=== PATIENT | male | born 1965 | race African-American/Black ===

== ENCOUNTER 2023-06-20 10:10 | Outpatient (REF) | payer MEDICAID, SELFPAY ==
[2023-06-20 11:43] LABS: Alanine Aminotransferase 33 U/L (0-40); Albumin Level 4.5 g/dL (3.5-5.0); Alkaline Phosphatase 83 U/L (39-117); Anion Gap 14 (12-20); Aspartate Amino Transferase 21 U/L (5-37); Bilirubin Total 0.6 mg/dL (0.0-1.0); Blood Urea Nitrogen 15 mg/dL (9-16); Calcium 9.1 mg/dL (8.4-10.2); Carbon Dioxide 27 mmol/L (22-29); Chloride 103 mmol/L (96-108); Cholesterol 234 mg/dL (<200); Estimated Glomerular Filt Rate > 60; Glucose Random 282 mg/dL (60-115); HDL Cholesterol 51 mg/dL (>40); LDL Cholesterol Calculated 156 mg/dL (<100); Sodium 140 mmol/L (135-145); Total Protein 7.4 g/dL (6.5-8.0); Triglycerides 136 mg/dL (<150)
[2023-06-20 11:59] LABS: TSH reflex Free T4 0.97 uIU/mL (0.32-4.0); Vitamin D 25-OH Total 9.1 ng/mL (>30)
[2023-06-20 12:06] LABS: Reflex LDLD? No
[2023-06-20 12:10] LABS: Creatinine Urine 196.64 mg/dL
== END 2023-06-20 10:11 | disposition home or self-care (01) ==
LOC: HO.LAB 10:10
PROVIDERS: Visit Provider Internal Medicine
DX: I10 Essential (primary) hypertension (principal); E11.9 Type 2 diabetes mellitus without complications
CPT/HCPCS: 36415; 80053; 80061; 82043; 82306; 82570; 84443

== ENCOUNTER 2023-11-21 14:40 | Outpatient (REF) | payer MEDICAID, SELFPAY ==
--- NOTE | ~2023-11-21 | XR_ITS ---
EXAMINATION: XR CHEST CLINICAL INFORMATION: Evaluate for widened mediastinum elevated blood pressure COMPARISON: None available. TECHNIQUE: 2 views of the chest were obtained. FINDINGS: No focal consolidation. No pneumothorax. Trachea is midline. Cardiac mediastinal silhouette is not enlarged. No large pleural effusion. Osseous structures are intact. Soft tissues are unremarkable. XR/XR chest 2V IMPRESSION: No acute cardiopulmonary process.
== END 2023-11-21 14:41 | disposition home or self-care (01) ==
LOC: HO.HHCX 14:40
PROVIDERS: Visit Provider Student in an Organized Health Care Education/Training Program
DX: R07.9 Chest pain, unspecified (principal); E11.9 Type 2 diabetes mellitus without complications
CPT/HCPCS: 71046

== ENCOUNTER 2024-01-30 08:25 | Day surgery (SDC) | payer MEDICAID, SELFPAY ==
[2023-10-08 13:19] VITALS: BMI 29.3
--- NOTE | 2024-01-30 09:10 | HO.ANESPROP2 ---
Documented by User: Benita Mesa NP 01/29/24 12:04 HPI - Anesthesia Eval Consult details Narrative: 58yo M for Colonoscopy Anesthesia Pre-Procedure Meds Is the patient on any of the following meds?: GLP1/DPP4 PMFSH Past Medical History Medical History (Updated 10/08/23 @ 13:20 by Mendy Mcgarry, BRIAN) Elevated cholesterol Diabetes HTN (hypertension) Surgical History Surgical History (Updated 10/08/23 @ 13:20 by Mendy Mcgarry, BRIAN) H/O colonoscopy Social History Social History (Updated 10/08/23 @ 13:20 by Mendy Mcgarry, BRIAN) Household Members: Family Use of substances other than those prescribed or required for medical reasons: No Advance Directives: No Advance Directives Information Provided: Yes Meds Allergies Allergy/AdvReac Type Severity Reaction Status Date / Time No Known Allergies Allergy Verified 10/08/23 13:19 Home Medications ?Medication ?Instructions ?Recorded ?Confirmed ?Last Taken ?Type ergocalciferol (vitamin D2) 1,250 1,250 mcg PO QWEEK 10/08/23 10/08/23 Unknown History mcg (50,000 unit) capsule fluticasone propionate 50 1 spray intranasal DAILY 10/08/23 10/08/23 Unknown History mcg/actuation nasal spray,suspension glimepiride 2 mg tablet 2 mg PO QAM 10/08/23 10/08/23 Unknown History metformin 1,000 mg tablet 1,000 mg PO BID 10/08/23 10/08/23 Unknown History sitagliptin phosphate 25 mg tablet 25 mg PO DAILY 10/08/23 10/08/23 Unknown History (Ana) Exam Height,Weight and Vital Signs: Height 5 ft 4 in Weight 77.564 kg Assessment and Plan Assessment Anesthesia Assessment: Chart Reviewed Documented by User: Paola Garber DO 01/30/24 09:17 HPI - Anesthesia Eval Anesthesia Pre-Procedure Meds Is the patient on any of the following meds?: GLP1/DPP4 PMFSH Past Medical History Medical History (Updated 10/08/23 @ 13:20 by Mendy Mcgarry RN) Elevated cholesterol Diabetes HTN (hypertension) Family History Family history of problems with anesthesia: No Surgical History Surgical History (Updated 10/08/23 @ 13:20 by Mendy Mcgarry RN) H/O colonoscopy History of Problems with Anesthesia: No Social History Social History (Updated 10/08/23 @ 13:20 by Mendy Mcgarry RN) Household Members: Family Use of substances other than those prescribed or required for medical reasons: No Advance Directives: No Advance Directives Information Provided: Yes Meds Allergies Allergy/AdvReac Type Severity Reaction Status Date / Time No Known Allergies Allergy Verified 10/08/23 13:19 Home Medications ?Medication ?Instructions ?Recorded ?Confirmed ?Last Taken ?Type ergocalciferol (vitamin D2) 1,250 1,250 mcg PO QWEEK 10/08/23 10/08/23 Unknown History mcg (50,000 unit) capsule fluticasone propionate 50 1 spray intranasal DAILY 10/08/23 10/08/23 Unknown History mcg/actuation nasal spray,suspension glimepiride 2 mg tablet 2 mg PO QAM 10/08/23 10/08/23 Unknown History metformin 1,000 mg tablet 1,000 mg PO BID 10/08/23 10/08/23 Unknown History sitagliptin phosphate 25 mg tablet 25 mg PO DAILY 10/08/23 10/08/23 Unknown History (Ana) Exam Exam Date and Time: 01/30/24 0910 Airway Mallampati Class: III TM Dist: >3cm Neck ROM: Full Loose/Missing/Broken Teeth: No (patient denies any loose or broken teeth) Heart: S1S2 Lungs: CTAB Assessment and Plan Assessment Anesthesia Assessment: Anesthesia Plan Discussed and Chart Reviewed Final Anesthetic Review Family History of Problems with Anesthesia: No History of Problems with Anesthesia: No NPO: Yes ASA Class: II Final Preanesthetic Review: No Changes in Pt Med Stat, Meds/Allgs Chart Reviewed, Consent Obtained/Reviewed and Anes Risks/Benef Reviewed Patient Risk: Low Procedure Risk: Low Anesthetic Plan Anesthetic Plan: MAC: and Agree w/ Assess. and Plan Disposition: Standard PACU
[2024-01-30 09:20] LABS: Glucose, Whole Blood 135 mg/dL (60-115)
[2024-01-30] MEDS: Lactated Ringers 1,000 ML 100 ML IVCONT (09:22)
[2024-01-30 11:00] VITALS: BP 90/56; PULSE 80; RESP 16; TEMP 36.1; O2SAT 99
--- NOTE | 2024-01-30 11:03 | PM.OP ---
Brief Operative Note Date of Service: 01/30/24 Pre-op diagnosis: Screening Post-op diagnosis: other (Diverticulosis, Limited prep) Procedure: Colonoscopy to the cecum Surgeon: Kenny Luong MD Anesthesia: MAC Was an Printing Gray Cloth Tender used for this Procedure?: No Estimated blood loss (mL): 0 Pathology: none sent Condition: stable Disposition: PACU
[2024-01-30 11:15] VITALS: PULSE 54; RESP 18; O2SAT 98
[2024-01-30 11:22] VITALS: BP 107/65; PULSE 61; RESP 18; TEMP 36.1; O2SAT 98
--- NOTE | 2024-01-30 11:44 | OP_ITS ---
DATE OF SERVICE: 01/30/2024 SURGEON: Kenny Luong MD INDICATIONS: The patient presents for evaluation of colorectal cancer screening. Full consent was obtained from him for this, including risks of bleeding and perforation. PREOPERATIVE DIAGNOSIS: Colorectal cancer screening. POSTOPERATIVE DIAGNOSIS: PROCEDURE PERFORMED: Colonoscopy to the cecum. ESTIMATED BLOOD LOSS: COMPLICATIONS: ANESTHESIA: Monitored anesthesia care. ASSISTANTS: SPECIMENS: POSTOPERATIVE DIAGNOSES: Colorectal cancer screening, diverticulosis, internal hemorrhoids, limited bowel prep. DESCRIPTION OF PROCEDURE: The patient was placed in the left lateral decubitus position. The digital rectal exam revealed no abnormalities. The Olympus video pediatric colonoscope was entered into the rectum and advanced to the cecum. Advancement to the cecum was difficult, primarily due to the poor prep. However, once in the cecum, I did identify normal-appearing cecal pouch with appendiceal orifice and a normal-appearing ileocecal valve. The prep in the cecum was good. The scope was then slowly withdrawn assessing all mucosal surfaces carefully. Preparation was for the most part good in the ascending colon and proximal transverse colon. However, in the more distal transverse colon, descending colon, and sigmoid colon, there was a lot of liquid stool, which could not be removed. Therefore, visualization was quite limited. I did not visualize any sign of polyps, colitis, nor angiodysplasia. There was a mild amount of sigmoid diverticulosis. In the rectum, scope was retroflexed visualizing internal hemorrhoids, but no other pathology. The rectal mucosa appeared normal, but again preparation was poor in this area as well. The scope was straightened and withdrawn from the patient. He tolerated the procedure well and was returned to recovery area in stable condition. IMPRESSION: 1. Diverticulosis. 2. Internal hemorrhoids. 3. Limited exam due to poor prep. PLAN: I will plan to reschedule him for another colonoscopy in 2024 with a 2-day prep to allow better visualization given the very limited exam today in parts of the colon. This has been discussed with his with an healthcare interpreter. MD CHARLEE Herrera/ABBY / [id number] MTDD
== END 2024-01-30 12:01 | disposition home or self-care (01) ==
PROVIDERS: PCP Internal Medicine; Visit Provider Internal Medicine
PROC: 0DJD8ZZ Inspection of Lower Intestinal Tract, Via Natural or Artificial Opening Endoscopic (ICD-10-PCS; CPT 45378; principal; 2024-01-30 09:30)
DX: Z12.11 Encounter for screening for malignant neoplasm of colon (principal); K57.30 Diverticulosis of large intestine without perforation or abscess without bleeding; K64.8 Other hemorrhoids; E11.9 Type 2 diabetes mellitus without complications; I10 Essential (primary) hypertension; E78.00 Pure hypercholesterolemia, unspecified; Z79.84 Long term (current) use of oral hypoglycemic drugs; Z79.899 Other long term (current) drug therapy
CPT/HCPCS: 45378; 82947; J2003; J2704

== ENCOUNTER 2024-03-16 12:45 | Outpatient (REF) | payer MEDICAID, SELFPAY ==
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
== END 2024-03-16 12:46 | disposition home or self-care (01) ==
LOC: HO.HHCX 12:45
PROVIDERS: Visit Provider Internal Medicine
DX: S43.421A Sprain of right rotator cuff capsule, initial encounter (principal)
CPT/HCPCS: 73030

== ENCOUNTER 2024-04-14 10:24 | Outpatient (REF) | payer OTHER, SELFPAY ==
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
== END 2024-04-14 10:25 | disposition home or self-care (01) ==
LOC: HO.HHCX 10:24
PROVIDERS: Visit Provider Internal Medicine
DX: S43.421D Sprain of right rotator cuff capsule, subsequent encounter (principal)
CPT/HCPCS: 73000

== ENCOUNTER 2024-05-06 10:34 | Outpatient (REF) | payer MEDICAID, SELFPAY ==
[2024-05-06 11:38] LABS: Hematocrit 47.4 % (42.0-52.0); Hemoglobin 16.3 g/dl (14.0-18.0); Mean Corpuscular HGB Conc 34.4 g/dl (31.0-36.0); Mean Corpuscular Volume 87.1 fL (80.0-98.0); Mean Platelet Volume 11.3 fL (9.4-12.4); Platelet Count 225 X10*3/uL (160-400); Red Blood Count 5.44 X10*6/uL (4.60-5.80); Red Cell Distribution Width 12.1 % (11.0-16.0); White Blood Count 5.6 X10*3/uL (4.8-10.8)
[2024-05-06 12:13] LABS: Creatinine Urine 407.11 mg/dL; Microalbum/Creatinine Ratio Ur 10.3 ug/mg cr (<30)
[2024-05-06 12:40] LABS: Estimated Average Glucose 269 mg/dL; Hemoglobin A1C 405.2663 umol/L; Total Hemoglobin (HGBA1C) 4210.0743 umol/L
[2024-05-06 13:18] LABS: Alanine Aminotransferase 41 U/L (0-40); Albumin Level 4.4 g/dL (3.5-5.0); Alkaline Phosphatase 84 U/L (39-117); Anion Gap 9 (12-20); Aspartate Amino Transferase 28 U/L (5-37); Bilirubin Total 0.8 mg/dL (0.0-1.0); Blood Urea Nitrogen 15 mg/dL (9-16); Carbon Dioxide 28 mmol/L (22-29); Chloride 107 mmol/L (96-108); Cholesterol 149 mg/dL (<200); Estimated Glomerular Filt Rate > 60; Glucose Random 225 mg/dL (60-115); HDL Cholesterol 51 mg/dL (>40); LDL Cholesterol Calculated 84 mg/dL (<100); Potassium 3.6 mmol/L (3.3-5.1); Sodium 140 mmol/L (135-145); TSH reflex Free T4 0.82 uIU/mL (0.32-4.0); Total Protein 7.3 g/dL (6.5-8.0); Triglycerides 73 mg/dL (<150); Vitamin D 25-OH Total 21.2 ng/mL (>30)
[2024-05-06 13:29] LABS: Folate 15.8 ng/mL (> or = 4.0); Vitamin B12 311 pg/mL (200-900)
[2024-05-06 13:43] LABS: CT PCR NOT DETECTED (Not Detect.); NG PCR NOT DETECTED (Not Detect.)
[2024-05-07 07:58] LABS: Syphilis Screen Nonreactive (Nonreactive)
[2024-05-07 09:10] LABS: HBS Num1 472.22 mIU/mL (0-7.99); HBc Num1 0.05 S/CO (0.00-0.79); HIV AB/AG Nonreactive (Nonreactive); HIV Num 1 0.05 S/CO (0.00-0.99); Hepatitis B Core Antibody Nonreactive (Nonreactive); Hepatitis B Surface Antigen Negative (Negative); ~HepC Num1 0.08 S/CO (0.00-0.79); ~Hepatitis B Surface Antibody REACTIVE (Nonreactive); ~Hepatitis C Antibody Nonreactive (Nonreactive)
== END 2024-05-06 10:35 | disposition home or self-care (01) ==
LOC: HO.HHCL 10:34
PROVIDERS: Visit Provider Student in an Organized Health Care Education/Training Program
DX: Z00.00 Encounter for general adult medical examination without abnormal findings (principal); Z11.59 Encounter for screening for other viral diseases
CPT/HCPCS: 80053; 80061; 82043; 82306; 82570; 82607; 82746; 83036; 84443; 85027; 86704; 86706; 86780; 86803; 87340; 87389; 87491; 87591

== ENCOUNTER → 2024-05-25 14:55 | Outpatient (BNVA) | payer OTHER, SELFPAY | PROVIDERS: PCP Internal Medicine; Visit Provider Physician Assistant | DX: M24.811 Other specific joint derangements of right shoulder, not elsewhere classified (principal) | CPT/HCPCS: 99202 ==

== ENCOUNTER 2024-06-11 10:44 | Outpatient (RCR) | payer OTHER, MEDICAID, SELFPAY | END 2024-09-29 10:39 | disposition home or self-care (01) | LOC: HO.PT 10:44 | PROVIDERS: PCP Internal Medicine; Visit Provider Physician Assistant | DX: M24.811 Other specific joint derangements of right shoulder, not elsewhere classified (principal) ==

== ENCOUNTER 2024-06-17 09:52 | Outpatient (RCR) | payer OTHER, MEDICAID, SELFPAY | END 2024-07-08 11:35 | disposition home or self-care (01) | LOC: HO.PT 09:52 | PROVIDERS: PCP Internal Medicine; Visit Provider Physician Assistant | DX: M24.811 Other specific joint derangements of right shoulder, not elsewhere classified (principal) | CPT/HCPCS: 97110; 97161 ==

== ENCOUNTER 2024-10-12 15:18 | Outpatient (REF) | payer MEDICAID, SELFPAY ==
[2024-10-12 16:12] LABS: MANUAL DIFF FLAG NO
[2024-10-12 16:24] LABS: Basophils Percent Auto 0.6 % (0-2); Eosinophils Absolute Auto 0.1 X10*3/uL (0.0-0.4); Eosinophils Percent Auto 1.4 % (0-4); Hematocrit 47.6 % (42.0-52.0); Hemoglobin 16.3 g/dl (14.0-18.0); Imm Gran Abs Auto 0.02 X10*3/uL (0.00-0.03); Imm Gran Pct Auto 0.3 % (0.0-0.4); Lymphocytes Absolute Auto 2.1 X10*3/uL (1.2-4.9); Lymphocytes Percent Auto 33.5 % (20-40); Mean Corpuscular HGB Conc 34.2 g/dl (31.0-36.0); Mean Corpuscular Hemoglobin 29.7 pg (27.0-33.0); Mean Corpuscular Volume 86.9 fL (80.0-98.0); Mean Platelet Volume 10.9 fL (9.4-12.4); Monocytes Absolute Auto 0.4 X10*3/uL (0.1-1.2); Monocytes Percent Auto 6.6 % (2-11); Neutrophils Absolute Auto 3.7 x10*3/uL (2.0-8.3); Neutrophils Percent Auto 57.6 % (45-73); Platelet Count 257 X10*3/uL (160-400); Red Blood Count 5.48 X10*6/uL (4.60-5.80); Red Cell Distribution Width 12.1 % (11.0-16.0); White Blood Count 6.4 X10*3/uL (4.8-10.8)
[2024-10-12 17:37] LABS: Anion Gap 12 (12-20); Blood Urea Nitrogen 11 mg/dL (9-16); Calcium 9.1 mg/dL (8.4-10.2); Carbon Dioxide 26 mmol/L (22-29); Chloride 104 mmol/L (96-108); Estimated Glomerular Filt Rate > 60; Glucose Random 266 mg/dL (60-115); Potassium 3.8 mmol/L (3.3-5.1); Sodium 138 mmol/L (135-145)
--- OUTSIDE RECORDS SUMMARY | 2024-10-12 17:49 | XMS_ITS | Encounter Summary ---
Author Organization [employer] Address [address] [place] [address] Care Team Providers Care Industrial Order Clerk Name Role Phone Windy Kapoor MD Primary Care Provider + Jorge Luis Diaz PharmD Unavailable [phone] Encounter Details Date Type Department Care Team ([facility] Contact Info) Description 05/13/2024 Telephone [facility] MEDICINE [address] [place], [place] [phone] Windy Kapoor MD [address], [place] [phone] Social History Tobacco Use Types Packs/Day Years Used Date Smoking Tobacco: Never Smokeless Tobacco: Never Alcohol Use Standard Drinks/Week Comments Never 0 (1 standard drink = 0.6 oz pur e alcohol) Housing Stability Answer Date Recorded What is your housing situation today? I have arletmiguel sierra 04/02/[address] you li ve. Do you have problems with any of the following? Mold 04/02/2024 Food Insecurity Answer Date Recorded Within the past 12 months, y ou worried that your food would run out before you got money to buy more: Never True 04/02/2024 Within the past 12 months,th e food you bought just didn't last and you didn't have enough money to get more: Never True 09/2023 Transportation Answer Date Recorded In the past 12 months, has l ack of transportation kept you from medical appts, meetings, work or from getting things needed for daily living? No 04/02/2024 Utilities Answer Date Recorded In the past 12 months, has t he [employer], [employer], oil or water [email or web address] threatened to shut off services in your home? Yes 04/02/2024 Internet Access Answer Date Recorded Internet Access Q1 Yes 04/02/2024 Internet Access Q2 Not on file 04/02/2024 Sex and Gender Information Value Date Recorded Sex Assigned at Male 02/25/2022 10:33 AM EDT Legal Sex Male 10:33 AM EDT Gender Identity Male 02/25/2022 10:33 AM EDT Sexual Orientation Straight 02/25/2022 10 :33 AM EDT documented as of this encounter Plan of Treatment Upcoming Encounters Date Type Department Care Team (Late st Contact Info) Description 10/15/2024 9:00 AM EDT Medication Management [facility] MEDICINE [address] [place] [phone] Jorge Luis Diaz, Haley [address] [place] [address] 10/20/2024 9:00 AM EDT Office Visit [facility] OPTOMETRY [address] [place] [address] Jay, Peyton, OD [address] [place] [address] 10/20/2025 10:00 AM EDT Nurse Only [facility] MEDICINE [address] [place] [address] documented as of this encounter Visit Diagnoses Not on filedocumented in this encounter Care Teams Industrial Order Clerk Relationship Specialty Start Date End Date Windy Kapoor MD [address] [place] [id number] PCP - General Internal Medicine 11/21/23 Jorge Luis Diaz, PharmD [address] [place] [phone] Pharmacist Internal Medicine 05/06/24 documented as of this encounter
== END 2024-10-12 15:19 | disposition home or self-care (01) ==
LOC: HO.HHCL 15:18
PROVIDERS: PCP Internal Medicine; Visit Provider Internal Medicine
DX: R42 Dizziness and giddiness (principal); E11.9 Type 2 diabetes mellitus without complications
CPT/HCPCS: 36415; 80048; 85025